=== PATIENT | male | born 1985 | race Hispanic/Latino ===

== ENCOUNTER 2016-07-01 15:22 | Emergency (ER) | payer OTHER ==
[~2016-07-01] VITALS: Ht 172.7 cm; Wt 75.0 kg
[~2016-07-01 15:22] MED LIST: AMOXICILLIN500 MG OR; BACTRIM DS1 TAB PO; GLUCOPHAGE1000 MG PO; GLYBURIDE5 MG PO; INSULIN SC; LEVEMIR1000 UNITS SC; LISINOPRIL5 MG PO; LORTAB 5 OR; LORTAB5 OR; METFORMIN HCL1000 MG PO; MUPIROCIN2 % EX; NAPROSYN375 MG PO; NAPROSYN500 MG OR; NO HOME MEDS; PENICILLN VK250 MG PO; PENICILLN VK500 MG PO; ULTRACET OR
[2016-07-01 16:58] LABS: HEMATOCRIT 43.1 % (39.0-50.0); HEMOGLOBIN 14.5 g/dl (14.0-18.0); IMMATURE GRANULOCYTES 0.4 % (0.0-1.0); MEAN CORPUSCULAR HGB 27.9 pG CALC (26.0-32.0); MEAN CORPUSCULAR HGB CONC 33.6 g/L CALC (32.0-36.0); NEUT# 7.72 thou/uL (1.82-7.42); RED BLOOD COUNT 5.19 mill/uL (4.70-6.10); RED CELL DISTRI WIDTH 12.1 % (11.5-15.5)
[2016-07-01 17:15] LABS: ALBUMIN 3.5 g/dL (3.2-5.0); ALKALINE PHOSPHATASE 71 u/l (38-126); ANION GAP 13 (6-22 (CALC)); BILIRUBIN, TOTAL 0.3 mg/dL (0.0-1.4); BUN 4 mg/dL (9-20); BUN/CREATININE RATIO 8 (12-20 (CALC)); CALCIUM 8.9 mg/dL (8.4-10.2); CARBON DIOXIDE 28 mmol/l (22-30); CHLORIDE 100 mmol/l (95-108); CREATININE 0.5 mg/dL (0.7-1.3); GFR > 60 ML/MIN (>=60 (CALC)); GFR FOR AFR.AMER. > 60 ML/MIN (>=60 (CALC)); GLUCOSE 432 mg/dL (75-110); POTASSIUM 3.6 mmol/l (3.5-5.1); SGOT/AST 11 u/l (17-59); SGPT/ALT 24 u/l (21-72); SODIUM 138 mmol/l (137-146); TOTAL PROTEIN 6.6 g/dL (6.3-8.2)
[2016-07-01 18:47] LABS: BARBITURATES NEGATIVE (NEGATIVE); COCAINE NEGATIVE (NEGATIVE); METHADONE NEGATIVE (NEGATIVE); OXCYCODONE NEGATIVE (NEGATIVE); TETRAHYDROCANNABIONOL NEGATIVE (NEGATIVE); TRICYLIC ANTIDEPRESSANTS NEGATIVE (NEGATIVE)
[2016-07-01 22:23] VITALS: BP 105/67
== END 2016-07-01 22:23 | disposition short-term general hospital (02) | DRG 914 ==
LOC: ED 15:22
PROVIDERS: Emergency Medicine
PROC: 0HQ1XZZ Repair Face Skin, External Approach (ICD-10-PCS; principal; 2016-07-01)
DX: T14.91 Suicide attempt (principal); E11.65 Type 2 diabetes mellitus with hyperglycemia; S33.5XXA Sprain of ligaments of lumbar spine, initial encounter; S01.21XA Laceration without foreign body of nose, initial encounter; F17.210 Nicotine dependence, cigarettes, uncomplicated; Z79.4 Long term (current) use of insulin; Y92.488 Other paved roadways as the place of occurrence of the external cause
CPT/HCPCS: J2060

== ENCOUNTER 2017-08-21 21:23 | Emergency (ER) | payer OTHER ==
[~2017-08-21] VITALS: Ht 172.7 cm; Wt 84.0 kg
[2017-08-21] MEDS ORDERED: LISINOP/HCTZ1 TAB PO (21:41)
[2017-08-21] MEDS ORDERED: JANUVIA100 MG PO (21:41)
[2017-08-21] MEDS ORDERED: GABAPENTIN300 M2 PO (21:42)
[2017-08-21] MEDS ORDERED: GLYBURIDE5 M1 PO (21:43)
[2017-08-21] MEDS ORDERED: SEROQUEL50 MG PO (21:44)
[2017-08-21] MEDS ORDERED: FENOFIBRATE145 MG PO (21:45)
[2017-08-21 22:31] LABS: IMMATURE GRANULOCYTES 0.2 % (0.0-1.0); MEAN CELL VOLUME 84.9 fL CALC (80.0-100.0); MEAN CORPUSCULAR HGB 28.1 pG CALC (26.0-32.0); MEAN CORPUSCULAR HGB CONC 33.1 g/L CALC (32.0-36.0); NEUT# 4.95 thou/uL (1.82-7.42); RED BLOOD COUNT 5.91 mill/uL (4.70-6.10); RED CELL DISTRI WIDTH 12.8 % (11.5-15.5)
[2017-08-21 22:32] LABS: HEMATOCRIT 50.2 % (39.0-50.0); HEMOGLOBIN 16.6 g/dl (14.0-18.0)
[2017-08-21 22:34] LABS: URINE BILIRUBIN - DIPSTICK NEGATIVE (NEGATIVE); URINE BLOOD DIPSTICK NEGATIVE (NEGATIVE); URINE CLARITY SL CLOUDY; URINE COLOR YELLOW; URINE GLUCOSE - DIPSTICK >=1000 mg/dL (NEGATIVE); URINE KETONE NEGATIVE (NEGATIVE); URINE LEUK ESTERASE NEGATIVE (NEGATIVE); URINE NITRITE - DIPSTICK NEGATIVE (Negative); URINE PH 5.5 (4.5-8.0); URINE PROTEIN - DIPSTICK NEGATIVE (NEG-TRACE); URINE UROBILINOGEN - DIPSTICK 0.2 E.U./dL (0.2)
[2017-08-21 22:46] LABS: ALKALINE PHOSPHATASE 65 u/l (38-126); BILIRUBIN, TOTAL 0.4 mg/dL (0.0-1.4); BUN 13 mg/dL (9-20); BUN/CREATININE RATIO 25 (12-20 (CALC)); CARBON DIOXIDE 26 mmol/l (22-30); CHLORIDE 97 mmol/l (95-108); CREATININE 0.5 mg/dL (0.7-1.3); GFR > 60 ML/MIN (>=60 (CALC)); GFR FOR AFR.AMER. > 60 ML/MIN (>=60 (CALC)); SGPT/ALT 95 u/l (21-72); SODIUM 138 mmol/l (137-146)
[2017-08-21 22:47] LABS: ALBUMIN 4.7 g/dL (3.2-5.0); ANION GAP 19 (6-22 (CALC)); POTASSIUM 4.4 mmol/l (3.5-5.1); SGOT/AST 53 u/l (17-59); TOTAL PROTEIN 8.2 g/dL (6.3-8.2)
[2017-08-22] MEDS ORDERED: LOMOTIL2.5 MG PO (00:54)
[2017-08-22 01:24] VITALS: BP 115/83
== END 2017-08-22 01:26 | disposition home or self-care (01) | DRG 866 ==
LOC: ED 21:23
PROVIDERS: Emergency Medicine
DX: B34.9 Viral infection, unspecified (principal); E11.65 Type 2 diabetes mellitus with hyperglycemia; I10 Essential (primary) hypertension; E78.00 Pure hypercholesterolemia, unspecified; F17.210 Nicotine dependence, cigarettes, uncomplicated
CPT/HCPCS: Q9967

== ENCOUNTER 2018-05-17 14:05 | Emergency (ER) | payer OTHER ==
[~2018-05-17] VITALS: Ht 172.7 cm; Wt 84.1 kg
[~2018-05-17 14:05] MED LIST changes: +FENOFIBRATE145 MG PO; +GABAPENTIN300 M2 PO; +GLYBURIDE5 M1 PO; +JANUVIA100 MG PO; +LISINOP/HCTZ1 TAB PO; +LOMOTIL2.5 MG PO; +SEROQUEL50 MG PO
[2018-05-17] MEDS ORDERED: METFORMIN500 MG PO (14:21)
[2018-05-17 15:20] LABS: HEMATOCRIT 48.8 % (39.0-50.0); HEMOGLOBIN 15.9 g/dl (14.0-18.0); IMMATURE GRANULOCYTES 0.3 % (0.0-5.0); MEAN CELL VOLUME 86.2 fL CALC (80.0-100.0); MEAN CORPUSCULAR HGB 28.1 pG CALC (26.0-32.0); MEAN CORPUSCULAR HGB CONC 32.6 g/L CALC (32.0-36.0); NEUT# 5.16 thou/uL (1.82-7.42); RED BLOOD COUNT 5.66 mill/uL (4.70-6.10); RED CELL DISTRI WIDTH 12.7 % (11.5-15.5)
[2018-05-17 15:32] LABS: ALBUMIN 4.1 g/dL (3.2-5.0); ALKALINE PHOSPHATASE 66 u/l (38-126); ANION GAP 21 (6-22 (CALC)); BILIRUBIN, TOTAL 0.5 mg/dL (0.0-1.4); BUN 5 mg/dL (9-20); BUN/CREATININE RATIO 11 (12-20 (CALC)); CARBON DIOXIDE 22 mmol/l (22-30); CHLORIDE 97 mmol/l (95-108); CREATININE 0.5 mg/dL (0.7-1.3); GFR > 60 ML/MIN (>=60 (CALC)); GFR FOR AFR.AMER. > 60 ML/MIN (>=60 (CALC)); LIPASE 58 u/l (23-300); POTASSIUM 4.8 mmol/l (3.5-5.1); SGOT/AST 16 u/l (17-59); SODIUM 134 mmol/l (137-146); TOTAL PROTEIN 7.1 g/dL (6.3-8.2)
[2018-05-17 15:33] LABS: COCAINE NEGATIVE (NEGATIVE)
[2018-05-17 15:34] LABS: BARBITURATES NEGATIVE (NEGATIVE); METHADONE NEGATIVE (NEGATIVE); OXCYCODONE NEGATIVE (NEGATIVE); TETRAHYDROCANNABIONOL NEGATIVE (NEGATIVE); TRICYLIC ANTIDEPRESSANTS NEGATIVE (NEGATIVE)
[2018-05-17] MEDS ORDERED: BENTYL10 MG PO (18:36)
[2018-05-17] MEDS ORDERED: PROTONIX40 M2 PO (18:36)
[2018-05-17 18:40] VITALS: BP 117/87
== END 2018-05-17 18:44 | disposition home or self-care (01) ==
LOC: ED 14:05
PROVIDERS: Emergency Medicine
DX: E11.65 Type 2 diabetes mellitus with hyperglycemia (principal); G89.29 Other chronic pain; R10.12 Left upper quadrant pain; E11.40 Type 2 diabetes mellitus with diabetic neuropathy, unspecified; I10 Essential (primary) hypertension; F32.9 Major depressive disorder, single episode, unspecified; F41.9 Anxiety disorder, unspecified; F31.9 Bipolar disorder, unspecified; F17.210 Nicotine dependence, cigarettes, uncomplicated
CPT/HCPCS: Q9967

== ENCOUNTER 2018-06-24 21:50 | Emergency (ER) | payer OTHER ==
[~2018-06-24] VITALS: Ht 172.7 cm; Wt 77.0 kg
[~2018-06-24 21:50] MED LIST changes: +BENTYL10 MG PO; +METFORMIN500 MG PO; +PROTONIX40 M2 PO
[2018-06-24] MEDS ORDERED: JANUVIA (22:13)
[2018-06-24 22:38] LABS: HEMATOCRIT 49.7 % (39.0-50.0); HEMOGLOBIN 15.9 g/dl (14.0-18.0); IMMATURE GRANULOCYTES 0.4 % (0.0-5.0); MEAN CELL VOLUME 86.6 fL CALC (80.0-100.0); MEAN CORPUSCULAR HGB 27.7 pG CALC (26.0-32.0); NEUT# 5.7 thou/uL (1.82-7.42); RED BLOOD COUNT 5.74 mill/uL (4.70-6.10); RED CELL DISTRI WIDTH 13.1 % (11.5-15.5)
[2018-06-24 22:56] LABS: ALBUMIN 4.3 g/dL (3.2-5.0); ALKALINE PHOSPHATASE 62 u/l (38-126); ANION GAP 19 (6-22 (CALC)); BILIRUBIN, TOTAL 0.6 mg/dL (0.0-1.4); BUN 12 mg/dL (9-20); BUN/CREATININE RATIO 18 (12-20 (CALC)); CARBON DIOXIDE 26 mmol/l (22-30); CHLORIDE 93 mmol/l (95-108); CREATININE 0.7 mg/dL (0.7-1.3); GFR > 60 ML/MIN (>=60 (CALC)); GFR FOR AFR.AMER. > 60 ML/MIN (>=60 (CALC)); LIPASE 168 u/l (23-300); POTASSIUM 4.4 mmol/l (3.5-5.1); SGOT/AST 26 u/l (17-59); SODIUM 134 mmol/l (137-146); TOTAL PROTEIN 7.5 g/dL (6.3-8.2)
[2018-06-24 22:57] LABS: AMYLASE < 30 u/l (30-110)
[2018-06-24] MEDS ORDERED: LEVEMIR100 UNIT/M SC (23:19)
[2018-06-24 23:47] LABS: URINE BILIRUBIN - DIPSTICK NEGATIVE (NEGATIVE); URINE BLOOD DIPSTICK NEGATIVE (NEGATIVE); URINE COLOR YELLOW; URINE GLUCOSE - DIPSTICK >=1000 mg/dL (NEGATIVE); URINE KETONE NEGATIVE (NEGATIVE); URINE LEUK ESTERASE NEGATIVE (NEGATIVE); URINE NITRITE - DIPSTICK NEGATIVE (Negative); URINE PH 6.5 (4.5-8.0); URINE PROTEIN - DIPSTICK NEGATIVE (NEG-TRACE); URINE SPECIFIC GRAVITY <=1.005; URINE UROBILINOGEN - DIPSTICK 0.2 E.U./dL (0.2)
[2018-06-25 00:39] VITALS: BP 128/86
== END 2018-06-25 00:38 | disposition home or self-care (01) ==
LOC: ED 21:50
PROVIDERS: Family Medicine
DX: R10.12 Left upper quadrant pain (principal); R10.32 Left lower quadrant pain; G89.29 Other chronic pain; R05 Cough; R50.9 Fever, unspecified

== ENCOUNTER 2019-06-19 13:58 | Inpatient (IN) | payer OTHER ==
[~2019-06-19] VITALS: Ht 172.7 cm; Wt 74.8 kg
[~2019-06-19 13:58] MED LIST changes: +JANUVIA; +LEVEMIR100 UNIT/M SC
[2019-06-19] MEDS ORDERED: BUPROPION100 MG PO (14:17)
[2019-06-19] MEDS ORDERED: JANUVIA100 MG PO (14:17)
[2019-06-19] MEDS ORDERED: GABAPENTIN100 MG PO (14:18)
[2019-06-19] MEDS ORDERED: ABILIFY10 MG PO (14:19)
[2019-06-19] MEDS ORDERED: LISINOP/HCTZ1 TAB PO (14:20)
[2019-06-19 14:36] LABS: HEMATOCRIT 43.4 % (39.0-50.0); IMMATURE GRANULOCYTES 0.1 % (0.0-5.0); MEAN CELL VOLUME 84.9 fL CALC (80.0-100.0); MEAN CORPUSCULAR HGB 27.4 pG CALC (26.0-32.0); MEAN CORPUSCULAR HGB CONC 32.3 g/dL CAL (32.0-36.0); NEUT# 3.95 thou/uL (1.82-7.42); RED BLOOD COUNT 5.11 mill/uL (4.70-6.10); RED CELL DISTRI WIDTH 12.2 % (11.5-15.5)
[2019-06-19 14:56] LABS: ALKALINE PHOSPHATASE 52 u/l (38-126); ANION GAP 14 (6-22 (CALC)); BUN 10 mg/dL (9-20); BUN/CREATININE RATIO 18 (12-20 (CALC)); CARBON DIOXIDE 24 mmol/l (22-30); CHLORIDE 99 mmol/l (95-108); CREATININE 0.5 mg/dL (0.7-1.3); ETHYL ALCOHOL 0 mg/dl (0-30); GFR > 60 ML/MIN (>=60 (CALC)); GFR FOR AFR.AMER. > 60 ML/MIN (>=60 (CALC)); POTASSIUM 4.9 mmol/l (3.5-5.1); SGOT/AST 23 u/l (17-59); SODIUM 132 mmol/l (137-146)
[2019-06-19 15:06] LABS: D-DIMER 0.17 mg/L (0.19-0.60); PROTHROMBIN TIME 10.2 SECONDS (9.0-12.5)
[2019-06-19 15:13] LABS: ALBUMIN 3.6 g/dL (3.2-5.0); BILIRUBIN, TOTAL 0.3 mg/dL (0.0-1.4); MYOGLOBIN 20 ng/mL (0 - 121)
[2019-06-19 16:00] LABS: URINE BILIRUBIN - DIPSTICK NEGATIVE (NEGATIVE); URINE BLOOD DIPSTICK NEGATIVE (NEGATIVE); URINE COLOR YELLOW; URINE GLUCOSE - DIPSTICK >=1000 mg/dL (NEGATIVE); URINE KETONE NEGATIVE (NEGATIVE); URINE LEUK ESTERASE NEGATIVE (NEGATIVE); URINE NITRITE - DIPSTICK NEGATIVE (Negative); URINE PROTEIN - DIPSTICK NEGATIVE (NEG-TRACE); URINE UROBILINOGEN - DIPSTICK 0.2 E.U./dL (0.2)
[2019-06-19 16:04] LABS: BARBITURATES NEGATIVE (NEGATIVE); COCAINE NEGATIVE (NEGATIVE); METHADONE NEGATIVE (NEGATIVE); OXCYCODONE NEGATIVE (NEGATIVE); TETRAHYDROCANNABIONOL NEGATIVE (NEGATIVE); TRICYLIC ANTIDEPRESSANTS NEGATIVE (NEGATIVE)
[2019-06-19 17:05] VITALS: BP 143/50
[2019-06-19 18:55] VITALS: BP 117/83
[2019-06-20 04:08] VITALS: BP 103/70
[2019-06-20 08:14] VITALS: BP 113/73
[2019-06-20 09:19] LABS: ANION GAP 9 (6-22 (CALC)); BUN 13 mg/dL (9-20); BUN/CREATININE RATIO 28 (12-20 (CALC)); CARBON DIOXIDE 26 mmol/l (22-30); CHLORIDE 106 mmol/l (95-108); CREATININE 0.5 mg/dL (0.7-1.3); GFR > 60 ML/MIN (>=60 (CALC)); GFR FOR AFR.AMER. > 60 ML/MIN (>=60 (CALC)); MAGNESIUM 1.9 mg/dL (1.6-2.3); SODIUM 137 mmol/l (137-146)
[2019-06-20 09:52] LABS: POTASSIUM 3.8 mmol/l (3.5-5.1)
[2019-06-20 10:45] VITALS: BP 117/76
== END 2019-06-20 13:25 | disposition home or self-care (01) | DRG 639 ==
LOC: ED 13:58 → ED-I 15:20 → ED 16:16 → MS2 16:17 → ED-I 16:17 → MS2 16:21
PROVIDERS: Emergency Medicine; Nurse Practitioner Family; ADMIT Internal Medicine; ATTEND Internal Medicine
DX: E11.65 Type 2 diabetes mellitus with hyperglycemia (principal); E11.40 Type 2 diabetes mellitus with diabetic neuropathy, unspecified; I10 Essential (primary) hypertension; E78.5 Hyperlipidemia, unspecified; F15.10 Other stimulant abuse, uncomplicated; T38.3X6A Underdosing of insulin and oral hypoglycemic [antidiabetic] drugs, initial encounter; F41.8 Other specified anxiety disorders; F17.210 Nicotine dependence, cigarettes, uncomplicated; Z91.128 Patient's intentional underdosing of medication regimen for other reason; Z79.4 Long term (current) use of insulin

== ENCOUNTER 2019-08-12 10:39 | Emergency (ER) | payer OTHER ==
[~2019-08-12 10:39] MED LIST changes: +ABILIFY10 MG PO; +BUPROPION100 MG PO; +GABAPENTIN100 MG PO
[2019-08-12 11:27] LABS: IMMATURE GRANULOCYTES 0.6 % (0.0-5.0); MEAN CORPUSCULAR HGB 27.1 pG CALC (26.0-32.0); MEAN CORPUSCULAR HGB CONC 33.1 g/dL CAL (32.0-36.0); NEUT# 15.59 thou/uL (1.82-7.42); RED BLOOD COUNT 4.39 mill/uL (4.70-6.10); RED CELL DISTRI WIDTH 12.3 % (11.5-15.5)
[2019-08-12 11:28] LABS: HEMOGLOBIN 11.9 g/dl (14.0-18.0)
[2019-08-12 12:15] LABS: ALBUMIN 3.1 g/dL (3.2-5.0); BUN 15 mg/dL (9-20); BUN/CREATININE RATIO 27 (12-20 (CALC)); CARBON DIOXIDE 26 mmol/l (22-30); CREATININE 0.6 mg/dL (0.7-1.3); GFR > 60 ML/MIN (>=60 (CALC)); GFR FOR AFR.AMER. > 60 ML/MIN (>=60 (CALC)); POTASSIUM 4.2 mmol/l (3.5-5.1); SGOT/AST 16 u/l (17-59); TOTAL PROTEIN 6.8 g/dL (6.3-8.2)
[2019-08-12 12:16] LABS: ALKALINE PHOSPHATASE 175 u/l (38-126); ANION GAP 13 (6-22 (CALC)); BILIRUBIN, TOTAL 0.8 mg/dL (0.0-1.4); C-REACTIVE PROTEIN > 9.0 mg/dL (0-0.9); CHLORIDE 93 mmol/l (95-108); SODIUM 128 mmol/l (137-146)
[2019-08-12 16:25] VITALS: BP 107/76
== END 2019-08-12 16:25 | disposition short-term general hospital (02) ==
LOC: ED 10:39
DX: M00.9 Pyogenic arthritis, unspecified (principal); E87.1 Hypo-osmolality and hyponatremia; I10 Essential (primary) hypertension; E11.40 Type 2 diabetes mellitus with diabetic neuropathy, unspecified; F17.210 Nicotine dependence, cigarettes, uncomplicated; Z79.4 Long term (current) use of insulin
CPT/HCPCS: J0131

== ENCOUNTER 2019-08-30 13:48 | Emergency (ER) | payer OTHER ==
[2019-08-30] MEDS ORDERED: FLEET ENEMA RE (15:01)
[2019-08-30] MEDS ORDERED: GOLYTEL1 PO (15:01)
[2019-08-30 15:18] VITALS: BP 113/80
== END 2019-08-30 15:17 | disposition home or self-care (01) ==
LOC: ED 13:48
DX: K59.00 Constipation, unspecified (principal); I10 Essential (primary) hypertension; E11.40 Type 2 diabetes mellitus with diabetic neuropathy, unspecified; Z79.4 Long term (current) use of insulin; F17.210 Nicotine dependence, cigarettes, uncomplicated

== ENCOUNTER 2020-04-01 22:14 | Emergency (ER) | payer OTHER ==
[~2020-04-01] VITALS: Ht 172.7 cm; Wt 77.0 kg
[~2020-04-01 22:14] MED LIST changes: +FLEET ENEMA RE; +GOLYTEL1 PO
[2020-04-01 23:25] LABS: IMMATURE GRANULOCYTES 0.2 % (0.0-5.0); MEAN CELL VOLUME 84.7 fL CALC (80.0-100.0); MEAN CORPUSCULAR HGB 27.1 pG CALC (26.0-32.0); NEUT# 6.9 thou/uL (1.82-7.42); RED BLOOD COUNT 5.17 mill/uL (4.70-6.10); RED CELL DISTRI WIDTH 12.5 % (11.5-15.5)
[2020-04-01 23:30] LABS: HEMATOCRIT 43.8 % (39.0-50.0)
[2020-04-01 23:46] LABS: ALBUMIN 3.9 g/dL (3.2-5.0); AMYLASE 36 u/l (30-110); BILIRUBIN, TOTAL 0.4 mg/dL (0.0-1.4); BUN 13 mg/dL (9-20); BUN/CREATININE RATIO 22 (12-20 (CALC)); CARBON DIOXIDE 28 mmol/l (22-30); CHLORIDE 99 mmol/l (95-108); CREATININE 0.6 mg/dL (0.7-1.3); ETHYL ALCOHOL 0 mg/dl (0-30); GFR > 60 ML/MIN (>=60 (CALC)); GFR FOR AFR.AMER. > 60 ML/MIN (>=60 (CALC)); LIPASE 33 u/l (23-300); SGOT/AST 18 u/l (17-59); TOTAL PROTEIN 7.3 g/dL (6.3-8.2)
[2020-04-01 23:52] LABS: ALKALINE PHOSPHATASE 63 u/l (38-126); ANION GAP 14 (6-22 (CALC)); SODIUM 137 mmol/l (137-146)
[2020-04-02] MEDS ORDERED: GLIPIZIDE10 MG PO (01:35)
[2020-04-02 02:28] LABS: URINE BILIRUBIN - DIPSTICK NEGATIVE (NEGATIVE); URINE BLOOD DIPSTICK TRACE-LYSED (NEGATIVE); URINE COLOR YELLOW; URINE GLUCOSE - DIPSTICK >=1000 mg/dL (NEGATIVE); URINE KETONE NEGATIVE (NEGATIVE); URINE LEUK ESTERASE NEGATIVE (NEGATIVE); URINE NITRITE - DIPSTICK NEGATIVE (Negative); URINE PROTEIN - DIPSTICK NEGATIVE (NEG-TRACE)
[2020-04-02 02:45] VITALS: BP 140/90
== END 2020-04-02 02:54 | disposition home or self-care (01) ==
LOC: ED 22:14
DX: E11.65 Type 2 diabetes mellitus with hyperglycemia (principal); F15.10 Other stimulant abuse, uncomplicated; E86.0 Dehydration; I10 Essential (primary) hypertension; F41.9 Anxiety disorder, unspecified; F31.9 Bipolar disorder, unspecified; E11.40 Type 2 diabetes mellitus with diabetic neuropathy, unspecified; F17.210 Nicotine dependence, cigarettes, uncomplicated; Z79.84 Long term (current) use of oral hypoglycemic drugs
CPT/HCPCS: Q9967; S0164

== ENCOUNTER 2020-08-31 07:37 | Inpatient (IN) | payer OTHER ==
[2020-08-31] VITALS (15 sets, daily range): BP systolic 103–146; BP diastolic 74–107
[~2020-08-31] VITALS: Ht 172.7 cm; Wt 72.0 kg
[~2020-08-31 07:37] MED LIST changes: +GLIPIZIDE10 MG PO
--- NOTE | 2020-08-31 07:37 | NUR ---
ARRIVED VIA EMS, INTUBATED WITH PULSE, IVF NSS, PREVIOUS MEDS ADMINISTERED PREHOSPITAL ETOMIDATE-20, SUCCINYLCHOLINE-100, VERSED-5, AND REPORTED HX OF DRUG ABUSE, UNKNOWN AMOUNT OF BUPROPRION TAKEN
[2020-08-31 07:53] LABS: IMMATURE GRANULOCYTES 0.4 % (0.0-5.0); MEAN CELL VOLUME 85.4 fL CALC (80.0-100.0); MEAN CORPUSCULAR HGB 27.2 pG CALC (26.0-32.0); MEAN CORPUSCULAR HGB CONC 31.9 g/dL CAL (32.0-36.0); NEUT# 5.13 thou/uL (1.82-7.42); RED BLOOD COUNT 4.26 mill/uL (4.70-6.10); RED CELL DISTRI WIDTH 12.9 % (11.5-15.5)
[2020-08-31 07:55] LABS: HEMATOCRIT 36.4 % (39.0-50.0); HEMOGLOBIN 11.6 g/dl (14.0-18.0)
--- NOTE | 2020-08-31 08:00 | NUR ---
PHYSICIAN AT BEDSIDE, RESOLUTION MANAGER AT BEDSIDE, SIERRA INSERTED USING STERILE TECHNIQUE WITH 1800ML CLEAR YELLOW URINE IMMEDIATELY DRAINED, MARLENY AND PROPOFOL INFUSING, VITAL SIGNS STABLE
--- NOTE | 2020-08-31 08:07 | NUR ---
PT PRESENTED VIA EMS UPON WELLBUTRIN OVERDOSE. PT INTUBATED BY EMS C 8.0 ETT. UPON BBS ASCUCULTATION, BBS PRESENT ON R, NOT ON L. ETT PULLED BACK UNTIL BBS =. CXR CONFIRMED PLACEMENT. PT VITALS WNL S/P ETT REPLACEMENT. PT CATARINO VENT SETTING WELL AT THIS TIME. NO ACUTE DISTRESS NOTED AT THIS TIME. ABG TO BE DRAWN SHORTLY, C PARAMATER ADJUSTMENTS NEEDED ON INVASIVE MECHANICAL VENTILATION. BRUSHER HAND TO MONITOR.
[2020-08-31 08:08] LABS: ALBUMIN 3.2 g/dL (3.2-5.0); ALKALINE PHOSPHATASE 53 u/l (38-126); ANION GAP 10 (6-22 (CALC)); BILIRUBIN, TOTAL 0.4 mg/dL (0.0-1.4); BUN 9 mg/dL (9-20); BUN/CREATININE RATIO 15 (12-20 (CALC)); CARBON DIOXIDE 24 mmol/l (22-30); CHLORIDE 101 mmol/l (95-108); CREATININE 0.6 mg/dL (0.7-1.3); GFR > 60 ML/MIN (>=60 (CALC)); GFR FOR AFR.AMER. > 60 ML/MIN (>=60 (CALC)); LIPASE 25 u/l (23-300); SGOT/AST 15 u/l (17-59); SODIUM 132 mmol/l (137-146); TOTAL PROTEIN 6.3 g/dL (6.3-8.2)
[2020-08-31 08:09] LABS: POTASSIUM 3.1 mmol/l (3.5-5.1)
--- NOTE | 2020-08-31 08:12 | NUR ---
CONTACTED POISON CONTROL SPOKE WITH JALEN ALL INFO GIVEN RECEIVED THE FOLLOWING RECOMMENDATIONS. -HOURLY EKG'S X4 HOURS THEN EVERY2-4 HOURS THERE AFTER DEPENDING ON FINDINGS -MAG LEVEL, TYLENOL LEVEL, SALICYLATE LEVEL, ETOH LEVEL -ACTIVATED CHARCOAL (IS NOT A MUST) EXPLAINED WE GOT NOTHING OUT WITH AN OG -REPLACE POTASSIUM (GOAL IS 4) -DELAYED SEIZURES ARE POSSILE USE BENZODIAZEPINES IF SZ ACTIVITY OCCURS -PROLONGED QT IS POSSIBLE -MAGNESIUM GOAL IS 2 -WIDENED QRS (USE SODIUM BICARB TO CORRECT)
[2020-08-31 08:13] LABS: URINE BILIRUBIN - DIPSTICK NEGATIVE (NEGATIVE); URINE BLOOD DIPSTICK TRACE-LYSED (NEGATIVE); URINE COLOR YELLOW; URINE GLUCOSE - DIPSTICK >=1000 mg/dL (NEGATIVE); URINE KETONE NEGATIVE (NEGATIVE); URINE LEUK ESTERASE NEGATIVE (NEGATIVE); URINE PROTEIN - DIPSTICK NEGATIVE (NEG-TRACE); URINE SPECIFIC GRAVITY 1.015; URINE UROBILINOGEN - DIPSTICK 0.2 E.U./dL (0.2)
[2020-08-31 08:14] LABS: URINE NITRITE - DIPSTICK NEGATIVE (Negative)
[2020-08-31 08:20] LABS: MYOGLOBIN 30 ng/mL (0 - 121)
--- NOTE | 2020-08-31 08:30 | NUR ---
BP INCREASING, WILL CONTINUE TO TITRATE MARLENY NEEDED. PT REMAINS STABLE
[2020-08-31 08:39] LABS: ETHYL ALCOHOL 0 mg/dl (0-30); MAGNESIUM 1.8 mg/dL (1.6-2.3)
--- NOTE | 2020-08-31 08:47 | NUR ---
TITRATED FIO2 FROM .6 TO .5 PER PT ABG RESULTS.
--- NOTE | 2020-08-31 08:55 | NUR ---
FAMILY ARRIVED AND BROUGHT PILL BOTTLE PATIENT PRESCRIBED WELLBUTRIN 300MG XL PILL COUNT COMPLETED BUT UNABLE TO DETERMINE APPROXIMATE AMOUNT TAKEN BECAUSE OF EXCESS PILLS IN THE BOTTLE BASED ON REFILL DATE
--- NOTE | 2020-08-31 09:00 | NUR ---
POTASSIUM STARTED PER MD ORDER, PT REMAINS IN STABLE CONDITION WITH 1:1 care with RN.
--- NOTE | 2020-08-31 09:30 | NUR ---
RN AT BEDSIDE. PREPARED FOR Q1H EKG. PT REMAINS IN STABLE CONDITION
--- NOTE | 2020-08-31 10:00 | NUR ---
ADMISSION REQUESTED. PT FAMILY AT BEDSIDE. PT REMAINS IN STABLE CONDITION
[2020-08-31] MEDS ORDERED: BUPROPN HCL300 MG PO (10:17)
--- NOTE | 2020-08-31 10:38 | NUR ---
FAMILY REMAINS AT BEDSIDE. AWAITING BED ASSIGNMENT.
--- NOTE | 2020-08-31 11:02 | NUR ---
TITRATED FIO2 PER PT SPO2. PT CATARINO WELL AT THIS TIME. NAD. VSS. RESPOSITIONED ETT WANG AT THIS TIME. NAD. VSS. COTTON WEIGHER TO MONITOR.
--- NOTE | 2020-08-31 11:07 | NUR ---
REPORT CALLED TO FANI RAMIREZ ON ICU. PT TO BE TRANSFERRED TO [facility]
--- NOTE | 2020-08-31 11:30 | NUR ---
RESTING ON STRETCHER. AWAITING TRANSFER TO ICU
--- NOTE | 2020-08-31 12:30 | NUR ---
RESTING ON STRETCHER. MEDS INFUSING WITHOUT DIFFICULTY.AWAITING TRANSFER TO ICU
--- NOTE | 2020-08-31 12:35 | NUR ---
POISON CONTROL CALLED ER AND UPDATED ON PTS STATUS. RECOMMENDED MAGNESIUM SUPPLEMENTATION TO INCREASE MAG LEVEL TO 2, REPEAT k LEVEL AND BICARB CHALLENGE, IF NOTABLE DECREASE IN QT INTERVAL THEN GIVE BICARB. NOTIFIED DR LEDEZMA VIA TELEPHONE AND NO NEW ORDERS
--- NOTE | 2020-08-31 12:53 | NUR ---
PT TRANSFERRED TO ICU WITH RNX2 AND LUMBER STACKER IN STABLE CONDITION
--- NOTE | 2020-08-31 12:55 | NUR ---
PT TRANSFERRED TO FLOOR IN STABLE CONDITION WITH RNX2, SENIOR SYSTEMS ARCHITECT, AND BEDSIDE REPORT EXCHANGED TO FANI RAMIREZ.
--- NOTE | 2020-08-31 13:08 | NUR ---
PT TO ROOM PER RESPIRATORY AND ER NURSE. PROPOFOL AND NEOSYNEPHRINE RUNNING. IV SITES LOOK HEALTHY. VITAL SIGNS STABLE. WITH B/P AT 114/87, SATS 100%, PT SEDATED, NG ATTACHED TO SUCTION WITH VENT AT BEDSIDE WITH RT AT BEDSIDE., SIERRA SHOWING PALE YELLOW URINE. PT HAS PAUL WRIST RESTRAINTS. PT WILL OPEN EYES UP TO PAINFUL STIMULI AND BACK TO SLEEP AGAIN. SCD HOSE ATTACHED. NO SKIN LESIONS NOTED, SCANT AMOUNT OF BROWN LIQUID IN NG TUBE. FAMILY IN WAITING ROOM TO SEE PT, ADVISED OF RULES AT THIS TIME FOR ICU VISITING HOURS.
--- NOTE | 2020-08-31 13:21 | NUR ---
pt recieved in icu from er. nad. vss. rt to monitor. titrated fio2 as per pt spo2.
--- NOTE | 2020-08-31 15:00 | NUR ---
VITAL SIGNS STABLE, PT REMAINS SEDATED. FAMILY AT BEDSIDE. IV FLUIDS INFUSING.
--- NOTE | 2020-08-31 16:55 | NUR ---
SPOKE WITH JALEN FROM POISON CONTROL AND GAVE AN UPDATE ON PT. POISON CONTROL REQUESTING ANOTHER POTASSIUM LEVEL AND A MAGNESIUM LEVEL OBTAINED. WOULD LIKE TO HAVE EKGS DONE EVERY 2 HOURS FOR 3 MORE TIMES THEN EVERY 4 HOURS. STATES THEY ARE LOOKING FOR LENGTHING QRS, PLACED LABS IN AND ADVISED RT OF REQUEST. PT REMAINS SEDATED WITH DIPROVAN, VITAL SIGNS STABLE.
--- NOTE | 2020-08-31 18:07 | NUR ---
pt resting comfortably c nad. vss. bbs =. ett patent and secure. paradi operator to monitor.
--- NOTE | 2020-08-31 19:30 | NUR ---
sedated. vent cont assisted by pt. campus monitor shows sinus rhythm hr 80. #18 lac, aline gtt infusing @ 0.25mcg/kg/min. #18 rt wrist ns infusing @ 100cchr, diprivan gtt infusing @ 40mcg/kg/min. og to lis draining tea colored drainage. greenberg cath in place, urine clear yellow. bilat wrist restraints, scds & fall precautions cont. requires total care for all needs.
--- NOTE | 2020-08-31 20:30 | NUR ---
rt here. ekg obtained.
--- NOTE | 2020-08-31 22:45 | NUR ---
bernadette from poison control called this communications writer. update given. requested ekg & lab work for morning.
[2020-09-01] VITALS (70 sets, daily range): BP systolic 67–137; BP diastolic 42–106
--- NOTE | 2020-09-01 00:01 | NUR ---
vent cont asssted by pt. alarm security or surveillance monitor shows sinus rhythm hr 98. turned & repositioned.
--- NOTE | 2020-09-01 02:00 | NUR ---
vent cont assisted by pt. cardiac nurse shows sinus tach hr 104.
--- NOTE | 2020-09-01 04:30 | NUR ---
rt here. ekg obtained.
--- NOTE | 2020-09-01 04:45 | NUR ---
rt here. abgs drawn.
--- NOTE | 2020-09-01 05:00 | NUR ---
lab here. blood drawn.
--- NOTE | 2020-09-01 05:10 | NUR ---
bed bath given & linen changed.
[2020-09-01 05:25] LABS: ALBUMIN 3.2 g/dL (3.2-5.0); ALKALINE PHOSPHATASE 73 u/l (38-126); BUN 5 mg/dL (9-20); BUN/CREATININE RATIO 13 (12-20 (CALC)); CARBON DIOXIDE 28 mmol/l (22-30); CHLORIDE 105 mmol/l (95-108); CREATININE 0.4 mg/dL (0.7-1.3); GFR > 60 ML/MIN (>=60 (CALC)); GFR FOR AFR.AMER. > 60 ML/MIN (>=60 (CALC)); POTASSIUM 3.3 mmol/l (3.5-5.1); SGOT/AST 15 u/l (17-59); TOTAL PROTEIN 6.3 g/dL (6.3-8.2)
[2020-09-01 05:27] LABS: ANION GAP 9 (6-22 (CALC)); BILIRUBIN, TOTAL 0.2 mg/dL (0.0-1.4); SODIUM 139 mmol/l (137-146)
[2020-09-01 06:12] LABS: HEMATOCRIT 39.9 % (39.0-50.0); HEMOGLOBIN 12.8 g/dl (14.0-18.0); IMMATURE GRANULOCYTES 0.5 % (0.0-5.0); MEAN CELL VOLUME 85.8 fL CALC (80.0-100.0); MEAN CORPUSCULAR HGB 27.5 pG CALC (26.0-32.0); MEAN CORPUSCULAR HGB CONC 32.1 g/dL CAL (32.0-36.0); NEUT# 13.27 thou/uL (1.82-7.42); RED BLOOD COUNT 4.65 mill/uL (4.70-6.10); RED CELL DISTRI WIDTH 13.2 % (11.5-15.5)
--- NOTE | 2020-09-01 06:45 | NUR ---
REPORT RECEIVED FROM FREDO ELLSWORTH. CARE ASSUMED
--- NOTE | 2020-09-01 07:05 | NUR ---
PT RESTING IN BED INTUBATED AND SEDATED AT THIS TIME. INCREASED PROPOFOL SEE TITRATION CHARTING FOR INCREASED NEED OF SEDATION. SHIFT ASSESSMENT COMPLETED. VSS. IV PATENT X2. WILL CONTINUE TO MONITOR.
--- NOTE | 2020-09-01 07:55 | NUR ---
SPOKE WITH DR DORADO REFERENCE LABS. NEW ORDERS RECEIVED.
--- NOTE | 2020-09-01 09:30 | NUR ---
PT RESTING IN BED INTUBATED AND SEDATED. VSS. WILL CONTINUE TO MONTIOR.
--- NOTE | 2020-09-01 10:29 | NUR ---
DR DORADO INTO SEE PATIENT AT THIS TIME. PLAN OF CARE DISCUSSED
--- NOTE | 2020-09-01 11:05 | NUR ---
VICTORINA FROM POISON CONTROL CALLED FOR UPDATE. UPDATE PROVIDED.
--- NOTE | 2020-09-01 11:30 | NUR ---
SUCTIONED PT NOTED THICK SECRETIONS RT NOTIFIED SPUTUM OBTAINED AND SENT TO LAB FOR REFERENCE. DR DORADO NOTIFED
--- NOTE | 2020-09-01 11:40 | NUR ---
Suctioned, specimen obtained. Specimen taken to lab.
--- NOTE | 2020-09-01 12:30 | NUR ---
PT REMAINS INTUBATED AND SEADTED AT THIS TIME. VS REMAIN STABLE. WILL CONTINUE TO MONITOR
--- NOTE | 2020-09-01 14:00 | NUR ---
PT IN BED INTUBATED AND SEDATED. VSS. ST ON INJECTION MOLDING SUPERVISOR. WILL CONTINUE TO MONITOR.
--- NOTE | 2020-09-01 14:48 | NUR ---
PT FEELS FEBILE TO TOUCH. RECTAL TEMP CHECKED AT THIS TIME. TEMP 101.[address] DORADO. NEW ORDERS RECEIVED. ALL BLANKETS REMOVED.
--- NOTE | 2020-09-01 15:50 | NUR ---
MARLENY-SYNEPHRINE RESTRARTED PER TITRATION CHARTING AT THIS TIME. FOR HYPOTENSION
--- NOTE | 2020-09-01 16:00 | NUR ---
DR PALACIOS NOTIFIED OF DECREASED URINE OUTPUT, RESTART OF MARLENY-SYNEPHRINE WELL.
--- NOTE | 2020-09-01 16:15 | NUR ---
TEMP RECHECKED RECTALLY AT THIS TIME 100.9. REMOVED SHEET. WILL CONTINNUE TO MONITOR
--- NOTE | 2020-09-01 16:45 | NUR ---
CONTINUING TO FREQUENT IN LINE ET TUBE SUCTION PATIENT. CONTINUE TO NOTE LARGE AMOUNTS OF YELLOW SECRETIONS. WILL CONTINUE TO MONITOR.
--- NOTE | 2020-09-01 18:17 | NUR ---
TEMP RECHECK RECTALLY 100.5.
--- NOTE | 2020-09-01 19:40 | NUR ---
sedated. vent cont assisted by pt. engine monitor shows sinus rhythm hr 92. #18 lac, aline infusing @ 0.5mcg/kg/min. #18 rfa ns infusing @ 100cchr, diprivan gtt infusing @ 55mcg/kg/min. og cont to lis draining tea colored. greenberg cath in place urine lt elvi. t 100.9. tylenol 650mg supp inserted. bilat scds, wrist restraints & fall precautions cont. turned & repositioned.
[2020-09-01 21:05] LABS: ANION GAP 9 (6-22 (CALC)); BUN 11 mg/dL (9-20); BUN/CREATININE RATIO 19 (12-20 (CALC)); CARBON DIOXIDE 26 mmol/l (22-30); CHLORIDE 105 mmol/l (95-108); CREATININE 0.6 mg/dL (0.7-1.3); GFR > 60 ML/MIN (>=60 (CALC)); GFR FOR AFR.AMER. > 60 ML/MIN (>=60 (CALC)); SODIUM 136 mmol/l (137-146)
--- NOTE | 2020-09-01 22:00 | NUR ---
VENT CONT ASSISTED BY PT. MAILMASTER SHOWS SINUS RHYTHM HR 90
[2020-09-02] VITALS (65 sets, daily range): BP systolic 80–154; BP diastolic 46–100
--- NOTE | 2020-09-02 00:01 | NUR ---
vent cont assisted by pt. no distress. playground monitor shows sinus rhythm hr 90
--- NOTE | 2020-09-02 02:00 | NUR ---
eyes closed. no apparent distress. electronic device monitor shows sinus rhythm hr 90.
--- NOTE | 2020-09-02 04:30 | NUR ---
lab here. blood drawn.
[2020-09-02 04:55] LABS: HEMATOCRIT 40.8 % (39.0-50.0); HEMOGLOBIN 12.6 g/dl (14.0-18.0); IMMATURE GRANULOCYTES 0.7 % (0.0-5.0); MEAN CELL VOLUME 89.5 fL CALC (80.0-100.0); MEAN CORPUSCULAR HGB 27.6 pG CALC (26.0-32.0); MEAN CORPUSCULAR HGB CONC 30.9 g/dL CAL (32.0-36.0); NEUT# 18.95 thou/uL (1.82-7.42); RED BLOOD COUNT 4.56 mill/uL (4.70-6.10); RED CELL DISTRI WIDTH 13.8 % (11.5-15.5)
--- NOTE | 2020-09-02 05:15 | NUR ---
xray here. pcxr obtained.
[2020-09-02 05:17] LABS: ALBUMIN 2.9 g/dL (3.2-5.0); ANION GAP 12 (6-22 (CALC)); BUN 11 mg/dL (9-20); BUN/CREATININE RATIO 20 (12-20 (CALC)); CARBON DIOXIDE 24 mmol/l (22-30); CHLORIDE 107 mmol/l (95-108); CREATININE 0.6 mg/dL (0.7-1.3); GFR > 60 ML/MIN (>=60 (CALC)); GFR FOR AFR.AMER. > 60 ML/MIN (>=60 (CALC)); POTASSIUM 4.1 mmol/l (3.5-5.1); SGOT/AST 21 u/l (17-59); SODIUM 138 mmol/l (137-146)
[2020-09-02 05:25] LABS: ALKALINE PHOSPHATASE 127 u/l (38-126); BILIRUBIN, TOTAL 0.5 mg/dL (0.0-1.4); MAGNESIUM 2.3 mg/dL (1.6-2.3)
--- NOTE | 2020-09-02 05:27 | NUR ---
rt here. priscilla obtained.
--- NOTE | 2020-09-02 06:00 | NUR ---
bath & linen change x2 assists.
--- NOTE | 2020-09-02 06:45 | NUR ---
REPORT RECEIVED FROM FREDO ELLSWORTH. CARE ASSUMED.
--- NOTE | 2020-09-02 07:00 | NUR ---
PT RESTING IN BED AT THIS TIME INTUBATED AND SEDATED. TITRATIONS COMPLETED PER TITRATION CHARTING. INCREASED SEDATION NEEDED. IV PATENT X2. WILL CONTINUE TO MONITOR CLOSELY.
--- NOTE | 2020-09-02 08:00 | NUR ---
CONSULT PLACED FOR DR BRYAN VIA [facility]
--- NOTE | 2020-09-02 08:58 | NUR ---
CONSULT COMPLETED WITH DR BRYAN. RECOMMENDS EXTUBATION, DR DORADO NOTIFIED.
--- NOTE | 2020-09-02 09:30 | NUR ---
DR DORADO AT BEDSIDE AT THIS TIME TO SEE PATIENT
--- NOTE | 2020-09-02 09:40 | NUR ---
BEGAN WEANING PROPOFOL FOR PLAN FOR EXTUBATION SEE TITRATION CHARTING.
--- NOTE | 2020-09-02 10:15 | NUR ---
PT AWAKE ABLE TO FOLLOW COMMANDS. PT IS VERY AGITATED AND FIGHTING VENT. RT AT BEDSIDE IN PREPARATION FOR EXTUBATION DR DORADO GAVE VERBAL ORDER TO EXTUBATE
--- NOTE | 2020-09-02 10:20 | NUR ---
PT EXTUBATED AT THIS TIME. OG REMOVED WELL. RESTRAINTS REMOVED. PT TOLERATED WELL. SITTER PRESENT AT BEDSIDE FOR COHEN ACT.
--- NOTE | 2020-09-02 11:30 | NUR ---
PT INCONTINENT OF STOOL AT THIS TIME. PT CLEANED AND LINENS CHANGED. PT TOLERATED WELL.
--- NOTE | 2020-09-02 12:15 | NUR ---
SIERRA CATHATER REMOVED. PT TOLERATED WELL.
--- NOTE | 2020-09-02 12:17 | NUR ---
FEMALE CALLED STATING THAT SHE IS PTS GIRLFRIEND SHE DOES HAVE CODE SHE REQUESTED TO VISIT EXPLAINED THAT COHEN ACTS ARE NOT ALLOWED VISITORS. SHE THEN REQUESTED TO SPEAK WITH HIM ON TELEPHONE EXPLAINED THAT HE IS NOT ALLOWED THAT EITHER. HE IN ON A MEDICAL HOLD FOR COHEN ACT. SHE VERBALIZED UNDERSTANDING.
--- NOTE | 2020-09-02 14:04 | NUR ---
PT RESTING IN BED WITH EYES CLOSED. SITTER REMAINS AT BEDSIDE. VSS. WILL CONTINUE TO MONITOR.
--- NOTE | 2020-09-02 14:48 | NUR ---
PHONED PT FAMILY PER PT REQUEST TO NOTIFY BIOPROCESS ENGINEER OF PATIENT BEING IN THE HOSPITAL. FAMILY STATES THAT THEY WOULD NOTIFY. PT ASSISTED UP TO RECLINER AT BEDSIDE. SITTER REMAINS IN ROOM.
--- NOTE | 2020-09-02 16:00 | NUR ---
PT SITTING UP IN RECLINER RESP ARE EVEN AND UNLABORED. NO DISTRESS NOTED. CALL LIGHT IN REACH. WILL CONTINUE TO MONITOR.
--- NOTE | 2020-09-02 19:15 | NUR ---
BEDRESTING. DOZING. TOBACCO WEIGHER AT BEDSIDE. RESP EVEN AND NONLABORED. PULSE REMAINS >100. NO COUGH OR RESP DISTRESS NOTED. PT IS A COHEN ACT BUT NOT MEDICALLY CLEARED YET.
--- NOTE | 2020-09-02 20:54 | NUR ---
COOPERATIVE WITH CARE OFFERED. N/C OR DISTRESS AT THIS TOME
--- NOTE | 2020-09-02 22:54 | NUR ---
BEDRESTING. COOPERATIVE WITH MEDICATION. MOVES ABOUT AD JATINDER. RESDILY RESPONDS TO STAFF. COOPERATIVE. NO RESP DISTRESS NOTED
[2020-09-03] VITALS (13 sets, daily range): BP systolic 101–166; BP diastolic 65–109
--- NOTE | 2020-09-03 | NUR ---
BEDRESTING. AFEBRILE. NO COUGH OR CONGESTION NOTED. WATER CONSERVATIONIST AT BEDSIDE
--- NOTE | 2020-09-03 02:00 | NUR ---
BEDRESTING. IV FLUIDS INFUSING AT 100ML/HR-TOLERATING WELL. NO DISTRESS NOTED
--- NOTE | 2020-09-03 04:00 | NUR ---
RESTING. EYES CLOSED. RESP EVEN AND NONLABORED. N/C VOICED
[2020-09-03 04:52] LABS: HEMOGLOBIN 11.9 g/dl (14.0-18.0); MEAN CELL VOLUME 86.8 fL CALC (80.0-100.0); MEAN CORPUSCULAR HGB 27.2 pG CALC (26.0-32.0); MEAN CORPUSCULAR HGB CONC 31.3 g/dL CAL (32.0-36.0); RED BLOOD COUNT 4.38 mill/uL (4.70-6.10); RED CELL DISTRI WIDTH 13.1 % (11.5-15.5)
[2020-09-03 05:06] LABS: ALBUMIN 2.6 g/dL (3.2-5.0); ALKALINE PHOSPHATASE 134 u/l (38-126); ANION GAP 9 (6-22 (CALC)); BILIRUBIN, TOTAL 0.5 mg/dL (0.0-1.4); BUN 9 mg/dL (9-20); BUN/CREATININE RATIO 17 (12-20 (CALC)); CARBON DIOXIDE 24 mmol/l (22-30); CHLORIDE 105 mmol/l (95-108); CREATININE 0.5 mg/dL (0.7-1.3); GFR > 60 ML/MIN (>=60 (CALC)); GFR FOR AFR.AMER. > 60 ML/MIN (>=60 (CALC)); MAGNESIUM 2.1 mg/dL (1.6-2.3); POTASSIUM 3.5 mmol/l (3.5-5.1); SGOT/AST 16 u/l (17-59); SODIUM 134 mmol/l (137-146); TOTAL PROTEIN 5.6 g/dL (6.3-8.2)
--- NOTE | 2020-09-03 05:50 | NUR ---
TEMP RESPONDED TO TYLENOL. BEDRESTING WITH WITH ONLINE ADVERTISING DIRECTOR AT BEDSIDE
--- NOTE | 2020-09-03 08:00 | NUR ---
PATIENT IS SLEEING AT THIS TIME. ARBORIST REPRESENTATIVE AT BEDSIDE. SAFETY MEASURES IN PLACE. CALL LIGHT IN REACH. WILL CONTINUE TO MONITOR.
--- NOTE | 2020-09-03 10:00 | NUR ---
PATIENT IS SLEEPING IN BED.
--- NOTE | 2020-09-03 12:00 | NUR ---
PATIENT IS EATING LUNCH AT THIS TIME.
--- NOTE | 2020-09-03 14:00 | NUR ---
PATIENT IS SLEEPING IN BED.
--- NOTE | 2020-09-03 15:32 | NUR ---
jazlyn from poison control phoned for update. update provided
--- NOTE | 2020-09-03 16:00 | NUR ---
PATIENT IS SLEEPING IN BED.
--- NOTE | 2020-09-03 18:00 | NUR ---
PATIENT IS SITTING UP IN CHAIR EATING DINNER
--- NOTE | 2020-09-03 19:15 | NUR ---
awake. no resp distress. cardiac cath technologist shows sinus tach hr 108. #18 rt wrist, ns infusing @ 100cchr. po fluids taken well. voids per urinal. fall precautions cont. sitter @ bedside. pt is aware of ramon act.
--- NOTE | 2020-09-03 22:00 | NUR ---
eyes closed. no distress. security monitor shows sinus rhythm hr 98.
[2020-09-04] VITALS (7 sets, daily range): BP systolic 121–162; BP diastolic 80–102
--- NOTE | 2020-09-04 00:01 | NUR ---
eyes closed. no distress. ivf infusing well. sitter @ bedside.
--- NOTE | 2020-09-04 02:00 | NUR ---
resting quietly. resps even & unlabored. no apparent distress.
--- NOTE | 2020-09-04 04:00 | NUR ---
lab here. blood drawn.
[2020-09-04 04:30] LABS: HEMATOCRIT 38.6 % (39.0-50.0); HEMOGLOBIN 12.4 g/dl (14.0-18.0); MEAN CELL VOLUME 85.6 fL CALC (80.0-100.0); MEAN CORPUSCULAR HGB 27.5 pG CALC (26.0-32.0); MEAN CORPUSCULAR HGB CONC 32.1 g/dL CAL (32.0-36.0); RED BLOOD COUNT 4.51 mill/uL (4.70-6.10); RED CELL DISTRI WIDTH 12.9 % (11.5-15.5)
[2020-09-04 04:50] LABS: ALBUMIN 2.7 g/dL (3.2-5.0); ALKALINE PHOSPHATASE 126 u/l (38-126); ANION GAP 10 (6-22 (CALC)); BUN 9 mg/dL (9-20); BUN/CREATININE RATIO 17 (12-20 (CALC)); CARBON DIOXIDE 25 mmol/l (22-30); CHLORIDE 103 mmol/l (95-108); CREATININE 0.5 mg/dL (0.7-1.3); GFR > 60 ML/MIN (>=60 (CALC)); GFR FOR AFR.AMER. > 60 ML/MIN (>=60 (CALC)); POTASSIUM 3.7 mmol/l (3.5-5.1); SGOT/AST 14 u/l (17-59); SODIUM 134 mmol/l (137-146); TOTAL PROTEIN 5.8 g/dL (6.3-8.2)
[2020-09-04 04:55] LABS: BILIRUBIN, TOTAL 0.2 mg/dL (0.0-1.4)
--- NOTE | 2020-09-04 06:00 | NUR ---
no change in condition. sitter remains @ bedside.
--- NOTE | 2020-09-04 08:00 | NUR ---
PATIENT ASSESSED. SAT UP IN BED TO EAT BREAKFAST. SAFETY MEASURES IN PLACE. CALL LIGHT IN REACH. WILL CONTINUE TO MONITOR.
[2020-09-04] MEDS ORDERED: AMOX/K CLAV875 M1 PO (08:47)
[2020-09-04] MEDS ORDERED: LEVEMIR FL100 UNIT/M SC (08:47)
[2020-09-04] MEDS ORDERED: COZAAR25 MG PO (08:50)
--- NOTE | 2020-09-04 08:51 | NUR ---
COVID TEST OBTAINED FOR POSSIBLE PLACEMENT
--- NOTE | 2020-09-04 10:40 | NUR ---
REPORT WAS GIVEN OFF TO ARLET Velasquez STAFF MEMBER AT [facility].
--- NOTE | 2020-09-04 11:20 | NUR ---
LOCAL OFFICER PICKED UP PATIENT. PATIENT IS NOW OFF THE UNIT.
== END 2020-09-04 11:25 | DRG 917 ==
LOC: ED 07:37 → ED-I 09:29 → ED 09:39 → ICU 09:49
PROVIDERS: Emergency Medicine; Internal Medicine; ADMIT Internal Medicine; ATTEND Internal Medicine
PROC: 0T9B70Z Drainage of Bladder with Drainage Device, Via Natural or Artificial Opening (ICD-10-PCS; principal; 2020-08-31)
PROC: 5A1945Z Respiratory Ventilation, 24-96 Consecutive Hours (ICD-10-PCS; 2020-08-31)
DX: T43.292A Poisoning by other antidepressants, intentional self-harm, initial encounter (principal); J96.00 Acute respiratory failure, unspecified whether with hypoxia or hypercapnia; J69.0 Pneumonitis due to inhalation of food and vomit; I10 Essential (primary) hypertension; F41.9 Anxiety disorder, unspecified; F31.9 Bipolar disorder, unspecified; E11.40 Type 2 diabetes mellitus with diabetic neuropathy, unspecified; E78.5 Hyperlipidemia, unspecified; F15.10 Other stimulant abuse, uncomplicated; F17.200 Nicotine dependence, unspecified, uncomplicated; B95.3 Streptococcus pneumoniae as the cause of diseases classified elsewhere; Z79.4 Long term (current) use of insulin; Z20.822 Contact with and (suspected) exposure to COVID-19
CPT/HCPCS: J0131; J3475; S0164

== ENCOUNTER 2021-06-05 15:26 | Emergency (ER) | payer OTHER ==
[~2021-06-05] VITALS: Ht 172.7 cm; Wt 76.2 kg
[~2021-06-05 15:26] MED LIST changes: +AMOX/K CLAV875 M1 PO; +BUPROPN HCL300 MG PO; +COZAAR25 MG PO; +LEVEMIR FL100 UNIT/M SC
[2021-06-05 15:41] VITALS: BP 139/103
[2021-06-05 15:42] VITALS: BP 125/103
[2021-06-05 15:45] VITALS: BP 130/99
[2021-06-05 16:01] VITALS: BP 144/110
[2021-06-05 16:15] VITALS: BP 142/107
[2021-06-05 16:52] VITALS: BP 142/107
== END 2021-06-05 16:30 | disposition left against medical advice (07) ==
LOC: ED 15:26
DX: H16.031 Corneal ulcer with hypopyon, right eye (principal); I10 Essential (primary) hypertension; E11.9 Type 2 diabetes mellitus without complications; F41.9 Anxiety disorder, unspecified; F31.9 Bipolar disorder, unspecified; F17.210 Nicotine dependence, cigarettes, uncomplicated; Z79.4 Long term (current) use of insulin; Z91.19 Patient's noncompliance with other medical treatment and regimen

== ENCOUNTER 2022-01-01 19:16 | Emergency (ER) | payer OTHER ==
[~2022-01-01] VITALS: Ht 172.7 cm; Wt 77.0 kg
[2022-01-01 20:30] LABS: MEAN CELL VOLUME 84.2 fL CALC (80.0-100.0); MEAN CORPUSCULAR HGB 28.1 pG CALC (26.0-32.0); MEAN CORPUSCULAR HGB CONC 33.3 g/dL CAL (32.0-36.0); NEUT# 4.14 thou/uL (1.82-7.42); RED BLOOD COUNT 4.63 mill/uL (4.70-6.10); RED CELL DISTRI WIDTH 12.4 % (11.5-15.5)
[2022-01-01 20:46] LABS: MAGNESIUM 2.2 mg/dL (1.6-2.3)
[2022-01-01 21:00] LABS: URINE BILIRUBIN - DIPSTICK NEGATIVE (NEGATIVE); URINE BLOOD DIPSTICK SMALL (NEGATIVE); URINE COLOR YELLOW; URINE GLUCOSE - DIPSTICK >=1000 mg/dL (NEGATIVE); URINE KETONE NEGATIVE (NEGATIVE); URINE LEUK ESTERASE NEGATIVE (NEGATIVE); URINE PROTEIN - DIPSTICK TRACE mg/dL (NEG-TRACE); URINE UROBILINOGEN - DIPSTICK 0.2 E.U./dL (0.2)
[2022-01-01 21:03] LABS: URINE NITRITE - DIPSTICK NEGATIVE (Negative)
[2022-01-01 21:29] LABS: ANION GAP 16 (6-22 (CALC)); BILIRUBIN, TOTAL 0.2 mg/dL (0.0-1.4); BUN 8 mg/dL (9-20); BUN/CREATININE RATIO 11 (12-20 (CALC)); CARBON DIOXIDE 21 mmol/l (22-30); CHLORIDE 101 mmol/l (95-108); CREATININE 0.7 mg/dL (0.7-1.3); GFR FOR AFR.AMER. > 60 ML/MIN (>=60 (CALC)); GFR OTHER RACES > 60 ML/MIN (>=60 (CALC)); LIPASE 35 u/l (23-300); POTASSIUM 4.1 mmol/l (3.5-5.1); SGOT/AST 22 u/l (17-59); SODIUM 134 mmol/l (137-146); TOTAL PROTEIN 6.5 g/dL (6.3-8.2)
[2022-01-01 21:30] LABS: ALBUMIN 3.6 g/dL (3.2-5.0); ALKALINE PHOSPHATASE 62 u/l (38-126)
[2022-01-01] MEDS ORDERED: LEVSIN0.125 M1 PO (23:02)
[2022-01-01] MEDS ORDERED: LEVEMIR100 UNIT SC (23:02)
[2022-01-01 23:08] VITALS: BP 123/93
== END 2022-01-01 23:09 | disposition home or self-care (01) ==
LOC: ED 19:16
PROVIDERS: Family Medicine
DX: R10.33 Periumbilical pain (principal); F15.10 Other stimulant abuse, uncomplicated; E11.65 Type 2 diabetes mellitus with hyperglycemia; E11.40 Type 2 diabetes mellitus with diabetic neuropathy, unspecified; I10 Essential (primary) hypertension; F41.9 Anxiety disorder, unspecified; F31.9 Bipolar disorder, unspecified; F17.200 Nicotine dependence, unspecified, uncomplicated; Z79.4 Long term (current) use of insulin
CPT/HCPCS: Q9967

== ENCOUNTER 2022-01-16 09:49 | Observation (INO) | payer OTHER ==
[~2022-01-16] VITALS: Ht 172.7 cm; Wt 77.1 kg
[~2022-01-16 09:49] MED LIST changes: +LEVEMIR100 UNIT SC; +LEVSIN0.125 M1 PO
--- NOTE | 2022-01-16 10:02 | NUR ---
PATIENT AMBULATED TO ROOM WITH STEADY GAIT. SUPPORT PERSON AT SIDE. PROVIDER NOTIFIED.
[2022-01-16 10:23] LABS: HEMATOCRIT 36.6 % (39.0-50.0); HEMOGLOBIN 12.3 g/dl (14.0-18.0); IMMATURE GRANULOCYTES 0.4 % (0.0-5.0); MEAN CELL VOLUME 83.6 fL CALC (80.0-100.0); MEAN CORPUSCULAR HGB 28.1 pG CALC (26.0-32.0); MEAN CORPUSCULAR HGB CONC 33.6 g/dL CAL (32.0-36.0); NEUT# 16.01 thou/uL (1.82-7.42); RED BLOOD COUNT 4.38 mill/uL (4.70-6.10); RED CELL DISTRI WIDTH 11.9 % (11.5-15.5)
[2022-01-16 10:38] LABS: ALBUMIN 3.5 g/dL (3.2-5.0); BUN 10 mg/dL (9-20); BUN/CREATININE RATIO 12 (12-20 (CALC)); CREATININE 0.8 mg/dL (0.7-1.3); GFR FOR AFR.AMER. > 60 ML/MIN (>=60 (CALC)); GFR OTHER RACES > 60 ML/MIN (>=60 (CALC)); SGOT/AST 17 u/l (17-59); SODIUM 130 mmol/l (137-146); TOTAL PROTEIN 7.3 g/dL (6.3-8.2)
[2022-01-16 10:40] LABS: ALKALINE PHOSPHATASE 154 u/l (38-126); ANION GAP 15 (6-22 (CALC)); BILIRUBIN, TOTAL 0.5 mg/dL (0.0-1.4); CARBON DIOXIDE 30 mmol/l (22-30); CHLORIDE 88 mmol/l (95-108); POTASSIUM 3.2 mmol/l (3.5-5.1)
--- NOTE | 2022-01-16 12:58 | NUR ---
Admission Note Report Given to: AFUA Transported by: Wheelchair X Stretcher Transported with: Nurse Transporter X Patent IV O2 X Carpenter Wooden Tank Erecting Location: ICU X MS2
[2022-01-16 13:11] VITALS: BP 122/85
--- NOTE | 2022-01-16 13:15 | NUR ---
PT BROUGHT FROM ED AT 1300. PT SETTLED INTO BED. VSS. PT STATES NO NEEDS AT THIS TIME.
[2022-01-16 14:20] VITALS: BP 132/75
--- NOTE | 2022-01-16 16:14 | NUR ---
PT SLEEPING IN BED. RESTING COMFORTABLY. VSS. NO NEEDS AT THIS TIME.
[2022-01-16 18:51] VITALS: BP 140/92
[2022-01-16 19:00] VITALS: BP 140/92
--- NOTE | 2022-01-16 20:30 | NUR ---
WENT IN PATIENT ROOM TO GET HIS BLOOD SUGAR .GIRLFRIEND WAS FOUND SLEEPING IN THE SAME BED WITH THE PATIENT. SHE WAS TOLD THAT SHE CAN NOT STAY IN THE PATIENT OVERNIGHT BECAUSE ITS THE POLICY. PATIENT GOT UP OF THE BED AND STATES"IF SHE CAN NOT STAY THEN I AM LEAVING " . APOLOGY WAS MADE TO PATIENT AND EXPLAIN THE REASON WHY THEY DO NOT LET THE FAMILY MEMBER. PATIENT DID NOT SAY A THING. I LEFT THE ROOM AND IN A FEW MINUTES I WAS CALLED BY SECURITY THAT THERE IS A PATIENT DOWNSTAIR ON HIS WAS OUT THE LOBBY TO HIS CAR WITH AN IV SITE. SECURITY AND I TRIED TO CATH THEM IN THEIR CAR BUT THEY ARE ALREADY ALMOST OUT ON THE PARKING LOT.
--- NOTE | 2022-01-16 20:45 | NUR ---
PERSONAL INJURY PARALEGAL INFORMED BY NURSE ASCENCION THAT PT ON ROOM #268 WALKED OUT OF ROOM AND LEFT AMA. PERSONAL INJURY PARALEGAL TRIED TO CAUGHT PT WHO WAS ACCOMPANIED BY SIGNIFICANT OTHER ON THEIR WAY DOWN TO THE [facility]. PT WAS ALREADY GONE. EXCELSIOR MACHINE OPERATOR JALEESA WAS NOTIFIED OF SAME.
--- NOTE | 2022-01-16 21:30 | NUR ---
RETAIL ASSET PROTECTION SPECIALIST CALLED [employer] AND NOTIFIED THEM ABOUT THE IV SITE.
--- NOTE | 2022-01-16 22:10 | NUR ---
CALL PLACED AGAIN TO [employer] AND SPOKE TO [place] NOTIFED THEM ABOUT THE PATIENT I.V SITE OF THE PATIENT . SHE WILL SENT SOMEONE IN THE PATIENT HOUSE AND CHECK THE PATIENT.
--- NOTE | 2022-01-16 22:23 | NUR ---
NOTIFIED LORIN CASTRO CINDY REGARDING THE INCIDENT.
--- NOTE | 2022-01-16 23:55 | NUR ---
CALL PLACED AGAIN TO [employer] AND DISPATCH SEND THE SURGENT WATCH COMMANDER . hE WAS INFORMED WITH THE SITUATION .HE WILL SEND SOMEONE TO CHECK ON PATIENT AND WILL CONTACT US FOR UPDATE.
== END 2022-01-16 21:15 | disposition left against medical advice (07) ==
LOC: ED 09:49 → ED-I 11:35 → ED 11:49 → MS2 11:50
PROVIDERS: Family Medicine; ADMIT Internal Medicine; ATTEND Internal Medicine
DX: A41.9 Sepsis, unspecified organism (principal); L02.215 Cutaneous abscess of perineum; I95.9 Hypotension, unspecified; I10 Essential (primary) hypertension; E11.40 Type 2 diabetes mellitus with diabetic neuropathy, unspecified; E78.5 Hyperlipidemia, unspecified; F41.9 Anxiety disorder, unspecified; F31.9 Bipolar disorder, unspecified; F15.10 Other stimulant abuse, uncomplicated; F17.210 Nicotine dependence, cigarettes, uncomplicated; B96.20 Unspecified Escherichia coli [E. coli] as the cause of diseases classified elsewhere; Z79.4 Long term (current) use of insulin; Z20.822 Contact with and (suspected) exposure to COVID-19
CPT/HCPCS: G0378; Q9967

== ENCOUNTER 2023-04-05 13:57 | Emergency (ER) | payer OTHER ==
[~2023-04-05] VITALS: Ht 172.7 cm; Wt 80.0 kg
[2023-04-05] VITALS (15 sets, daily range): BP systolic 115–184; BP diastolic 75–113
[2023-04-05 14:52] LABS: GFR FOR AFR.AMER. > 60 ML/MIN (>=60 (CALC)); GFR OTHER RACES 53 ML/MIN (>=60 (CALC))
[2023-04-05 14:53] LABS: BASO% 0.1 % (0-3); EOS% 0.8 % (0-8); HEMATOCRIT 34.6 % (39.0-50.0); HEMOGLOBIN 11.3 g/dl (14.0-18.0); IMMATURE GRANULOCYTES 0.4 % (0.0-5.0); LYMPH% 7.4 % (15-41); MEAN CELL VOLUME 83.6 fL CALC (80.0-100.0); MEAN CORPUSCULAR HGB 27.3 pG CALC (26.0-32.0); MEAN CORPUSCULAR HGB CONC 32.7 g/dL CAL (32.0-36.0); NEUT# 18.38 thou/uL (1.82-7.42); NEUT% 82.3 % (42-76); RED BLOOD COUNT 4.14 mill/uL (4.70-6.10); RED CELL DISTRI WIDTH 12.5 % (11.5-15.5)
[2023-04-05 15:06] LABS: ALBUMIN 2.8 g/dL (3.2-5.0); ALKALINE PHOSPHATASE 372 u/l (38-126); ANION GAP 12 (6-22 (CALC)); BILIRUBIN, TOTAL 0.6 mg/dL (0.2-1.3); BUN 23 mg/dL (9-20); BUN/CREATININE RATIO 18 (12-20 (CALC)); CARBON DIOXIDE 27 mmol/l (22-30); CHLORIDE 94 mmol/l (95-108); CREATININE 1.3 mg/dL (0.7-1.3); GFR FOR AFR.AMER. > 60 ML/MIN (>=60 (CALC)); GFR OTHER RACES > 60 ML/MIN (>=60 (CALC)); SGOT/AST 26 u/l (17-59); SODIUM 129 mmol/l (137-146)
[2023-04-05 15:38] LABS: URINE BILIRUBIN - DIPSTICK Negative (NEGATIVE); URINE BLOOD DIPSTICK Moderate (NEGATIVE); URINE GLUCOSE - DIPSTICK 500 mg/dL (NEGATIVE); URINE KETONE Negative (NEGATIVE); URINE LEUK ESTERASE Negative (NEGATIVE); URINE NITRITE - DIPSTICK Negative (Negative); URINE PROTEIN - DIPSTICK >=300 mg/dL (NEG-TRACE)
[2023-04-05 15:41] LABS: URINE COLOR Yellow
[2023-04-05 15:42] LABS: URINE EPITHELIAL CELLS FEW EPI/hpf (0-FEW); URINE MUCUS MODERATE hpf (NONE-FEW)
== END 2023-04-05 18:16 | disposition short-term general hospital (02) ==
LOC: ED 13:57
PROVIDERS: Family Medicine
DX: A41.9 Sepsis, unspecified organism (principal); R65.20 Severe sepsis without septic shock; E11.52 Type 2 diabetes mellitus with diabetic peripheral angiopathy with gangrene; I96 Gangrene, not elsewhere classified; L03.115 Cellulitis of right lower limb; F17.200 Nicotine dependence, unspecified, uncomplicated; Z79.4 Long term (current) use of insulin; Z20.822 Contact with and (suspected) exposure to COVID-19
CPT/HCPCS: Q9967

== ENCOUNTER 2023-04-16 01:42 | Emergency (ER) | payer OTHER ==
[~2023-04-16] VITALS: Ht 172.7 cm; Wt 86.0 kg
[2023-04-16 03:14] VITALS: BP 142/106
== END 2023-04-16 03:33 | disposition home or self-care (01) ==
LOC: ED 01:42
DX: Z48.01 Encounter for change or removal of surgical wound dressing (principal); E11.9 Type 2 diabetes mellitus without complications; Z79.4 Long term (current) use of insulin; F17.200 Nicotine dependence, unspecified, uncomplicated

== ENCOUNTER 2023-05-12 17:19 | Emergency (ER) | payer OTHER ==
[~2023-05-12] VITALS: Ht 172.7 cm; Wt 84.0 kg
[2023-05-12 18:46] VITALS: BP 125/87
== END 2023-05-12 18:54 | disposition home or self-care (01) ==
LOC: ED 17:19
DX: Z48.01 Encounter for change or removal of surgical wound dressing (principal); E11.9 Type 2 diabetes mellitus without complications; Z79.4 Long term (current) use of insulin; F17.210 Nicotine dependence, cigarettes, uncomplicated

== ENCOUNTER 2023-10-19 00:45 | Emergency (ER) | payer OTHER ==
[~2023-10-19] VITALS: Ht 172.7 cm; Wt 83.0 kg
[2023-10-19] VITALS (33 sets, daily range): BP systolic 70–169; BP diastolic 37–99
[2023-10-19] MEDS ORDERED: PIPERACILLIN Sodium-Tazobactam 3.375 GM in SODIUM CHLORIDE 0.9% 100 ML IV ONE (01:05)
[2023-10-19] MEDS ORDERED: SODIUM CHLORIDE 0.9% 1,000 ML IV ONE ×3 (01:05→02:47)
[2023-10-19] MEDS ORDERED: KETOROLAC TROMETHAMINE 30 MG/ML SDV IV ONE (01:05)
[2023-10-19] MEDS ORDERED: VANCOMYCIN HCL 1 GM in SODIUM CHLORIDE 0.9% 250 ML IV ONE (01:05)
[2023-10-19] MEDS ORDERED: ACETAMINOPHEN 500 MG TAB PO ONE (01:05)
[2023-10-19 01:27] LABS: EOS% 0.7 % (0-8); HEMATOCRIT 33.1 % (39.0-50.0); HEMOGLOBIN 10.8 g/dl (14.0-18.0); LYMPH% 5.3 % (15-41); MEAN CORPUSCULAR HGB 25.5 pG CALC (26.0-32.0); MEAN CORPUSCULAR HGB CONC 32.6 g/dL CAL (32.0-36.0); MONO% 4.7 % (2-13); NEUT# 11.29 thou/uL (1.82-7.42); NEUT% 86.3 % (42-76); RED BLOOD COUNT 4.24 mill/uL (4.70-6.10); RED CELL DISTRI WIDTH 14.2 % (11.5-15.5)
[2023-10-19 01:30] LABS: MEAN CELL VOLUME 78.1 fL CALC (80.0-100.0)
[2023-10-19 01:35] LABS: ALBUMIN 2.5 g/dL (3.2-5.0); POTASSIUM 4.1 mmol/l (3.5-5.1); TOTAL PROTEIN 5.9 g/dL (6.3-8.2)
[2023-10-19 01:42] LABS: BILIRUBIN, TOTAL 1.5 mg/dL (0.2-1.3); CREATININE 2.8 mg/dL (0.7-1.3)
[2023-10-19] MEDS ORDERED: INSULIN REGULAR (HUMAN) 100 UNIT/ML INJ SC ONE (01:45)
[2023-10-19] MEDS ORDERED: NOREPINEPHRINE BITARTRATE 4 MG/VIAL SDV ONE (02:48)
[2023-10-19] MEDS ORDERED: LEVOFLOXACIN750 MG PO (05:31)
== END 2023-10-19 05:36 | disposition left against medical advice (07) | DRG 300 ==
LOC: ED 00:45
PROVIDERS: Family Medicine
DX: E11.52 Type 2 diabetes mellitus with diabetic peripheral angiopathy with gangrene (principal); I96 Gangrene, not elsewhere classified; E11.610 Type 2 diabetes mellitus with diabetic neuropathic arthropathy; E11.65 Type 2 diabetes mellitus with hyperglycemia; I10 Essential (primary) hypertension; F17.210 Nicotine dependence, cigarettes, uncomplicated; Z79.4 Long term (current) use of insulin; Z53.29 Procedure and treatment not carried out because of patient's decision for other reasons